=== PATIENT | female | born 1990 | race Caucasian/White ===

== ENCOUNTER → 2022-06-24 | Outpatient (CLI) | payer OTHER, SELFPAY ==
[2022-06-24 07:51] LABS: Absolute Lymphocyte Count 2.88 X10^3/uL (0.83-4.51); Absolute Neutrophil Count 5.7 X10^3/uL (2.0-7.7); Basophil# 0.02 X10^3/uL; Basophil% 0.2 % (0-1); Eosinophil# 0.07 X10^3/uL; Eosinophils% 0.8 % (0-5); Hematocrit 42.9 % (37-47); Hemoglobin 14.2 g/dL (12.0-15.0); Lymphocyte # 2.88 X10^3/ul (0.83-4.51); Lymphocyte % 31.7 % (19-41); Mean Corp Hgb Conc 33.1 g/dL (32-36); Mean Corpuscular Hgb 28.1 pg (27.0-32.0); Mean Corpuscular Volume 84.8 fL (81-99); Mean Platelet Vol. 10.3 fl (6.2-12.0); Monocyte# 0.37 X10^3/uL; Monocyte% 4.1 % (0-10); NRBC Flagged by Analyzer 0 % (0-5); Neutrophil # 5.72 X10^3/uL (2.7-7.7); Platelet Count 244 K/mm3 (150-450); RBC Distribution Width CV 13.2 % (11.6-14.6); RBC Distribution Width SD 40.8 fl (35.1-43.9); Red Blood Count 5.06 M/mm3 (4.2-5.4); White Blood Count 9.1 K/mm3 (4.4-11.0)
[2022-06-24 08:17] LABS: Cholesterol 190 mg/dL (200); Glucose 94 mg/dL (74-106); High Density Lipoprotein 36 mg/dL; Thyroid Stim Hormone (TSH) 3.14 uIU/mL (0.358-3.74); Triglycerides 125 mg/dL; Very Low Density Lipoprotein 25 mg/dL (5-40)
== END | disposition home or self-care (01) ==
PROVIDERS: Referring Provider Advanced Practice Midwife; Visit Provider Advanced Practice Midwife
DX: N93.9 Abnormal uterine and vaginal bleeding, unspecified (principal); Z13.1 Encounter for screening for diabetes mellitus; Z13.220 Encounter for screening for lipoid disorders; Z13.29 Encounter for screening for other suspected endocrine disorder
CPT/HCPCS: 36415; 80061; 82947; 84443; 85025

== ENCOUNTER → 2022-06-26 | Outpatient (CLI) | payer OTHER, SELFPAY ==
--- NOTE | 2022-06-26 11:31 | US_ITS ---
STUDY: ULTRASOUND OF THE FEMALE PELVIS - COMPLETE REASON FOR EXAM: Female, 32 years old. Abnormal uterine bleeding LMP: June 20, 2022. TECHNIQUE: Transvaginal TECHNICAL QUALITY: Adequate. COMPARISON: None. FINDINGS: The uterus is anteverted and is in a midline position. The uterus measures 7.9 cm x 5.3 cm x 3.9 cm. There is a Nabothian cyst of the cervix. The endometrium measures 7.6 mm in thickness, and is hyperechoic. There is no demonstrated endometrial mass. There is no demonstrated myometrial mass. I.U.D. - The patient does not have an I.U.D. The right ovary is visualized. The right ovary measures 4.2 cm x 3 cm x 3.2 cm. A dominant follicle is seen measuring 2 cm x 1.5 cm x 1.8 cm. There is no visualized right adnexal mass or complex lesion. There is normal arterial and normal venous vascularity. The left ovary is visualized. The left ovary measures 4 cm x 2.7 cm x 2.1 cm. Small follicles are seen. There is no visualized left adnexal mass or complex lesion. There is normal arterial and normal venous vascularity. There is no fluid in the cul-de-sac. US/Transvaginal Non- IMPRESSION: Dominant follicle seen in the right ovary. Electronically Signed: Gary Rosas MD at 15:46 EDT ,
== END | disposition home or self-care (01) ==
LOC: US 11:30
PROVIDERS: Referring Provider Advanced Practice Midwife; Visit Provider Advanced Practice Midwife
DX: N93.9 Abnormal uterine and vaginal bleeding, unspecified (principal)
CPT/HCPCS: 76830

== ENCOUNTER → 2022-07-17 | Outpatient (CLI) | payer OTHER, SELFPAY ==
--- NOTE | 2022-07-17 | EMB_PTH ---
PATIENT: MARIA R MARTÍNEZ [facility] U#:[id number] AGE/SX: 32/F ROOM: RE07/17/[address]: AILYN Cunha : 1990 BED: DIS: 07/17/2022 SPEC #: [id number] RECD: 07/17/22 16:15 STATUS: STEW REMin #: [id number] DESTINI: 07/17/22 00:[address]: Lizbeth Garcia NP DEPT: SURGICAL PATHOLOGY RECD BY: Lincoln Cordova ENTERED: 07/18/22 10:02 SP TYPE: ENDOM BX/C MAGDY DR: No Primary Care Phys Tissues: Endometrium, NOS Procedures: Surgery Specimen Level IV HEADER OPERATION: Endometrial biopsy PRE-OP DIAGNOSIS: Abnormal uterine bleeding TISSUE SUBMITTED: Endometrial tissue MICROSCOPIC DIAGNOSIS Endometrium, biopsy: Dyssynchronous endometrium with focal glandular breakdown. AM:josie 07/22/2022 MICROSCOPIC DESCRIPTION Slides are reviewed. GROSS DESCRIPTION Received is one container labeled with the patient's name and not further designated. The specimen consists of multiple irregular fragments of pugh-pink soft tissue that in aggregate measure 2.0 x 0.6 x 0.1 cm. The specimen is totally submitted in one cassette. / SJ:josie 07/18/2022 TC:5 CPT: 24035
== END | disposition home or self-care (01) ==
LOC: LABSPEC 16:22
PROVIDERS: Referring Provider Nurse Practitioner Women's Health; Visit Provider Nurse Practitioner Women's Health
DX: N93.9 Abnormal uterine and vaginal bleeding, unspecified (principal)
CPT/HCPCS: 88305

== ENCOUNTER → 2022-09-03 | Outpatient (CLI) | payer OTHER, SELFPAY ==
[2022-09-03 08:31] LABS: Estradiol 103.5 pg/mL; Follicle Stimulating Hormone 2.3 mIU/mL; Prolactin 26.7 ng/mL
== END | disposition home or self-care (01) ==
LOC: PAVLAB 07:50
PROVIDERS: Referring Provider Nurse Practitioner Women's Health; Visit Provider Nurse Practitioner Women's Health
DX: N93.9 Abnormal uterine and vaginal bleeding, unspecified (principal)
CPT/HCPCS: 36415; 82670; 83001; 84146

== ENCOUNTER → 2022-10-07 | Outpatient (CLI) | payer OTHER, SELFPAY ==
[2022-10-07 08:48] LABS: Progesterone Level 0.51 ng/mL (See Comment)
== END | disposition home or self-care (01) ==
LOC: PAVLAB 07:45
PROVIDERS: Referring Provider Nurse Practitioner Women's Health; Visit Provider Nurse Practitioner Women's Health
DX: N97.0 Female infertility associated with anovulation (principal); N93.9 Abnormal uterine and vaginal bleeding, unspecified
CPT/HCPCS: 36415; 84144

== ENCOUNTER → 2022-11-24 | Outpatient (CLI) | payer OTHER, SELFPAY ==
[2022-11-24 09:40] LABS: Progesterone Level 4.46 ng/mL (See Comment)
== END | disposition home or self-care (01) ==
LOC: PAVLAB 08:25
PROVIDERS: Referring Provider Nurse Practitioner Women's Health; Visit Provider Nurse Practitioner Women's Health
DX: N97.0 Female infertility associated with anovulation (principal)
CPT/HCPCS: 36415; 84144

== ENCOUNTER → 2024-05-03 | Outpatient (CLI) | payer BC, SELFPAY ==
[2024-05-03 17:05] LABS: Absolute Neutrophil Count 6.9 X10^3/uL (2.0-7.7); Basophil# 0.03 X10^3/uL; Basophil% 0.3 % (0-1); Hematocrit 33.3 % (37-47); Hemoglobin 10.8 g/dL (12.0-15.0); Lymphocyte % 28.9 % (19-41); Mean Corp Hgb Conc 32.4 g/dL (32-36); Mean Corpuscular Hgb 27.2 pg (27.0-32.0); Mean Corpuscular Volume 83.9 fL (81-99); Mean Platelet Vol. 10.2 fl (6.2-12.0); Monocyte# 0.26 X10^3/uL; Monocyte% 2.5 % (0-10); NRBC Flagged by Analyzer 0 % (0-5); Neutrophil # 6.94 X10^3/uL (2.7-7.7); Neutrophil % 66.7 % (47-70); Platelet Count 269 K/mm3 (150-450); RBC Distribution Width CV 13.4 % (11.6-14.6); RBC Distribution Width SD 41.1 fl (35.1-43.9); Red Blood Count 3.97 M/mm3 (4.2-5.4); White Blood Count 10.4 K/mm3 (4.4-11.0)
[2024-05-03 18:18] LABS: hCG Titer Quant., Serum < 1 mIU/mL (<9 non-preg)
[2024-05-05 08:09] LABS: Thyroid Peroxidase AB 11 IU/mL (0-34)
== END | disposition home or self-care (01) ==
LOC: BWCLAB 13:50
PROVIDERS: Referring Provider Nurse Practitioner Women's Health; Visit Provider Nurse Practitioner Women's Health
DX: N93.9 Abnormal uterine and vaginal bleeding, unspecified (principal); Z13.29 Encounter for screening for other suspected endocrine disorder
CPT/HCPCS: 36415; 84439; 84443; 84702; 85025; 86376

== ENCOUNTER → 2024-06-22 | Outpatient (CLI) | payer BC, SELFPAY ==
[2024-06-27 13:07] LABS: HPV APTIMA, High Risk Negative (Negative)
== END | disposition home or self-care (01) ==
LOC: LABSPEC 15:08
PROVIDERS: Referring Provider Nurse Practitioner Women's Health; Visit Provider Nurse Practitioner Women's Health
DX: Z12.4 Encounter for screening for malignant neoplasm of cervix (principal)
CPT/HCPCS: 87624; 88175; G0145

== ENCOUNTER → 2025-01-12 | Outpatient (CLI) | payer BC, SELFPAY ==
[2025-01-12 10:08] LABS: Hematocrit 39.0 % (37-47); Hemoglobin 12.6 g/dL (12.0-15.0); Mean Corp Hgb Conc 32.3 g/dL (32-36); Mean Corpuscular Volume 81.4 fL (81-99); Mean Platelet Vol. 10.1 fl (6.2-12.0); Platelet Count 237 K/mm3 (150-450); RBC Distribution Width CV 13.6 % (11.6-14.6); RBC Distribution Width SD 40.3 fl (35.1-43.9); Red Blood Count 4.79 M/mm3 (4.2-5.4); White Blood Count 9.4 K/mm3 (4.4-11.0)
[2025-01-12 12:53] LABS: AST(SGOT) 24 U/L (<=31); Alanine Aminotransfer ALT/SGPT 27 U/L (<=34); Albumin, Serum 4.3 g/dL (3.5-5.0); Alkaline Phosphatase 72 U/L (35-104); Anion Gap 11 (5-15); BUN 9 mg/dL (4-19); BUN/Creat Ratio 16.1 RATIO (10-20); Calcium,Total 8.9 mg/dL (7.6-11.0); Carbon Dioxide 24.0 mmol/L (21.0-32.0); Chloride 103 mmol/L (98-108); Cholesterol 178 mg/dL (<=200); Globulin 3.0 g/dL (2.2-4.2); Glucose 89 mg/dL (70-99); Low Density Lipoprotein Calc. 116 mg/dL; Potassium 3.8 mmol/L (3.3-5.1); Triglycerides 162 mg/dL; Very Low Density Lipoprotein 32 mg/dL (5-40); Vitamin D,25 Hydroxy 20.6 ng/mL (30-100); cholesterol:hdl ratio screen 5.31
== END | disposition home or self-care (01) ==
LOC: MFPLAB 09:10
PROVIDERS: PCP Family Medicine; Visit Provider Family Medicine
DX: Z00.00 Encounter for general adult medical examination without abnormal findings (principal); Z13.220 Encounter for screening for lipoid disorders; Z13.1 Encounter for screening for diabetes mellitus
CPT/HCPCS: 36415; 80053; 80061; 82306; 84443; 85027